=== PATIENT | female | born 1990 | race Caucasian/White ===

== ENCOUNTER 2020-06-20 07:36 | Day surgery (SDC) | payer OTHER ==
[2020-06-14 17:14] LABS: BASOPHIL % 0.5 % (0-2); PLATELET COUNT 318 x10^3mcL (130-400)
[2020-06-14 17:18] LABS: RED CELL DISTRIBUTION WIDTH 14.7 % (11.5-14.5)
[2020-06-14 17:27] LABS: ALBUMIN 3.9 g/dL (3.4-5.0); ALKALINE PHOSPHATASE 52 U/L (46-116); ALT/SGPT 29 U/L (14-59); AST/SGOT 15 U/L (15-37); BILIRUBIN TOTAL 0.2 mg/dL (0.20-1.00); CALCIUM 8.9 mg/dL (8.5-10.1); CARBON DIOXIDE 24.6 mmol/L (21-32); CHLORIDE SERUM 101 mmol/L (98-107); CREATININE SERUM 0.8 mg/dL (0.6-1.0); GFR1 > 60 mL/min; GLUCOSE SERUM 98 mg/dL (74-106); POTASSIUM SERUM 3.8 mmol/L (3.5-5.1); SODIUM SERUM 137 mmol/L (136-145); TOTAL PROTEIN, SERUM 7.9 g/dL (6.4-8.2)
--- NOTE | 2020-06-18 12:57 | NUR ---
COPIES OF CXR AND LAB RESULTS WERE FAXED TO DR. MATHEW'S OFFICE AND SENT TO OR (ANESTHESIOLOGIST) TO REVIEW.
[~2020-06-20] VITALS: Ht 142.2 cm; Wt 54.4 kg
[2020-06-20 08:18] VITALS: BP 124/60
[2020-06-20 14:36] VITALS: BP 133/76
== END 2020-06-20 14:15 | disposition home or self-care (01) ==
LOC: DS 07:36 → OR 10:30 → DS 14:15
PROVIDERS: ATTEND Surgery
DX: K42.9 Umbilical hernia without obstruction or gangrene (principal); D64.9 Anemia, unspecified; Z98.51 Tubal ligation status; Z11.59 Encounter for screening for other viral diseases
CPT/HCPCS: C1781; J0690; J1170; J2250; J3010; J3490; U0003-CS